=== PATIENT | male | born 1995 | race Caucasian/White ===

== ENCOUNTER 2018-03-22 09:25 | Inpatient (IN) | payer OTHER ==
[~2018-03-22] VITALS: Ht 200.7 cm; Wt 119.4 kg
[2018-03-22 10:08] LABS: ALBUMIN 4.8 g/dL (3.2-4.8); CHLORIDE 88 mEq/L (99-109); POTASSIUM 4.2 mEq/L (3.7-5.4); SODIUM 132 mEq/L (136-147)
[2018-03-22 10:11] LABS: TOTAL PROTEIN 8.6 g/dL (6.4-8.3)
[2018-03-22 10:13] LABS: TOTAL BILIRUBIN 2.1 mg/dL (0.0-1.0)
[2018-03-22 10:14] LABS: ALKALINE PHOSPHATASE 142 IU/L (3-129); CREATININE 1.6 mg/dL (0.6-1.3)
[2018-03-22 10:15] LABS: GFR ESTIMATE (CALCULATED) 57 mL/min/ (58.99-99999); UREA NITROGEN (BUN) 16 mg/dL (9-23)
[2018-03-22 10:16] LABS: AST (GOT) 41 IU/L (2-34)
[2018-03-22 10:17] LABS: ALT (GPT) 96 IU/L (3-49)
[2018-03-22 10:19] LABS: GLUCOSE 640 mg/dL (70-99)
[2018-03-22 10:46] LABS: CARBON DIOXIDE (BICARBONATE) 27.9 MEQ/L (20-31)
[2018-03-22 10:54] LABS: HEMATOCRIT 42.8 % (38.0-50.0); HEMOGLOBIN 16.2 G/DL (12.5-16.6); MCH 32.6 PG (29.0-34.0); MCHC 37.9 G/DL (30.0-36.0); MCV 86.1 FL (86-99); PLATELET COUNT 222 K/uL (156-360); RBC DIS.WIDTH-CV 11.8 % (11.8-14.6); RBC DIS.WIDTH-SD 36.2 % (39-53); RED BLOOD COUNT 4.97 M/uL (4.00-5.50); WHITE BLOOD COUNT 8.2 K/uL (4.1-10.2)
[2018-03-22 10:59] LABS: LIPASE 260 U/L (1.0-51.0)
[2018-03-22 11:50] LABS: APPEARANCE CLEAR ((CLEAR)); BILIRUBIN NEGATIVE; BLOOD SMALL; COLOR YELLOW ((YELLOW)); GLUCOSE (STRIP) >=500; KETONES 20; LEUKOCYTES NEGATIVE; NITRITE NEGATIVE; PROTEIN (STRIP) 100; SPECIFIC GRAVITY 1.036 (1.000-1.030); UROBILINOGEN 0.2 MG/DL (0.2-1.0)
[2018-03-22 11:54] LABS: BACTERIA NONE SEEN /HPF; EPITHELIAL CELLS NONE SEEN /HPF; MUCUS TRACE /LPF; RED BLOOD CELLS 0-5 /HPF (0-5); UCUL ADDED? NO; WHITE BLOOD CELLS 0-5 /HPF (0-5)
[2018-03-22 13:59] LABS: CHLORIDE 97 mEq/L (99-109); POTASSIUM 4.1 mEq/L (3.7-5.4); SODIUM 136 mEq/L (136-147)
[2018-03-22 14:02] LABS: GLUCOSE 409 mg/dL (70-99)
[2018-03-22 14:05] LABS: CREATININE 1.2 mg/dL (0.6-1.3); GFR ESTIMATE (CALCULATED) > 59 mL/min/ (58.99-99999)
[2018-03-22 14:06] LABS: UREA NITROGEN (BUN) 14 mg/dL (9-23)
[2018-03-22 14:29] LABS: SERUM ETHYL ALCOHOL < 10 mg/dL
[2018-03-22 14:31] LABS: BASOPHIL (%) 0.8 % (0-1); BASOPHIL COUNT 0.1 K/uL (0-0.1); EOSINOPHIL (%) 2.3 % (0-5); EOSINOPHIL COUNT 0.2 K/uL (0-0.3); HEMATOCRIT 39.8 % (38.0-50.0); HEMOGLOBIN 14.8 G/DL (12.5-16.6); IMMATURE GRANULOCYTE (%) 0.8 % (0.0-0.7); LYMPHOCYTE COUNT 2.2 K/uL (1.0-2.8); MCH 32.1 PG (29.0-34.0); MCHC 37.2 G/DL (30.0-36.0); MCV 86.3 FL (86-99); MONOCYTE (%) 7.1 % (3-12); MONOCYTE COUNT 0.6 K/uL (0-0.8); NEUTROPHIL COUNT 4.9 K/uL (1.8-6.4); PLATELET COUNT 214 K/uL (156-360); RBC DIS.WIDTH-CV 11.8 % (11.8-14.6); RBC DIS.WIDTH-SD 36.8 % (39-53); RED BLOOD COUNT 4.61 M/uL (4.00-5.50); WHITE BLOOD COUNT 7.9 K/uL (4.1-10.2)
[2018-03-22 15:15] LABS: ACETAMINOPHEN (TYLENOL) < 10 mcg/mL (10-30)
[2018-03-22 15:50] LABS: HDL CHOLESTEROL 16 MG/DL (Desirable>=40); NON-HDL CHOLESTEROL 148 mg/dL (Desirable<160); TOTAL CHOLESTEROL 164 mg/dL (Desirable<200); TRIGLYCERIDES 867 MG/DL (Normal: <150)
[2018-03-22 16:25] LABS: GLUCOSE 360 mg/dL (70-99)
[2018-03-22 16:28] LABS: BENZODIAZEPINES, URINE SCREEN Negative (200 ng/mL)
[2018-03-22 16:58] LABS: BASOPHIL (%) 0.8 % (0-1); BASOPHIL COUNT 0.1 K/uL (0-0.1); EOSINOPHIL (%) 3.5 % (0-5); EOSINOPHIL COUNT 0.3 K/uL (0-0.3); HEMATOCRIT 39.2 % (38.0-50.0); HEMOGLOBIN 14.7 G/DL (12.5-16.6); IMMATURE GRANULOCYTE (%) 0.9 % (0.0-0.7); LYMPHOCYTE (%) 26.3 % (15-42); LYMPHOCYTE COUNT 2.1 K/uL (1.0-2.8); MCH 32.3 PG (29.0-34.0); MCHC 37.5 G/DL (30.0-36.0); MCV 86.2 FL (86-99); MONOCYTE (%) 8.3 % (3-12); MONOCYTE COUNT 0.7 K/uL (0-0.8); NEUTROPHIL (%) 60.2 % (45-76); NEUTROPHIL COUNT 4.7 K/uL (1.8-6.4); PLATELET COUNT 203 K/uL (156-360); RBC DIS.WIDTH-CV 11.8 % (11.8-14.6); RBC DIS.WIDTH-SD 36.9 % (39-53); RED BLOOD COUNT 4.55 M/uL (4.00-5.50); WHITE BLOOD COUNT 7.8 K/uL (4.1-10.2)
[2018-03-22 19:07] LABS: CHLORIDE 98 MEQ/L (99-109); POTASSIUM 3.8 MEQ/L (3.7-5.4); SODIUM 133 MEQ/L (136-147); TOTAL BILIRUBIN 1.2 MG/DL (0.0-1.0)
[2018-03-22 19:19] LABS: GLUCOSE 416 mg/dL (70-99)
[2018-03-22 19:21] LABS: ALKALINE PHOSPHATASE 97 IU/L (3-129); ALT (GPT) 58 IU/L (3-49); AST (GOT) 26 IU/L (2-34); GFR ESTIMATE (CALCULATED) > 59 mL/min/ (58.99-99999); GLUCOSE 416 mg/dL (70-99); TOTAL PROTEIN 6.7 G/DL (6.4-8.3); UREA NITROGEN (BUN) 14 mg/dL (9-23)
[2018-03-22 19:53] VITALS: BP 133/77
[2018-03-22 20:34] LABS: GLUCOSE 342 mg/dL (70-99)
[2018-03-23] VITALS (7 sets, daily range): BP systolic 135–175; BP diastolic 78–97
[2018-03-23 05:16] LABS: BASOPHIL (%) 0.5 % (0-1); EOSINOPHIL (%) 3.8 % (0-5); EOSINOPHIL COUNT 0.2 K/uL (0-0.3); HEMATOCRIT 37.9 % (38.0-50.0); HEMOGLOBIN 13.5 G/DL (12.5-16.6); IMMATURE GRANULOCYTE (%) 0.6 % (0.0-0.7); LYMPHOCYTE (%) 31.8 % (15-42); MCH 31.6 PG (29.0-34.0); MCHC 35.6 G/DL (30.0-36.0); MCV 88.8 FL (86-99); MONOCYTE (%) 7.4 % (3-12); MONOCYTE COUNT 0.5 K/uL (0-0.8); NEUTROPHIL (%) 55.9 % (45-76); NEUTROPHIL COUNT 3.5 K/uL (1.8-6.4); PLATELET COUNT 184 K/uL (156-360); RBC DIS.WIDTH-CV 11.9 % (11.8-14.6); RBC DIS.WIDTH-SD 38.3 % (39-53); RED BLOOD COUNT 4.27 M/uL (4.00-5.50); WHITE BLOOD COUNT 6.3 K/uL (4.1-10.2)
[2018-03-23 05:51] LABS: ALBUMIN 3.9 G/DL (3.2-4.8); ALKALINE PHOSPHATASE 75 IU/L (3-129); ALT (GPT) 52 IU/L (3-49); CHLORIDE 100 MEQ/L (99-109); CREATININE 0.9 MG/DL (0.6-1.3); DIRECT BILIRUBIN 0.2 mg/dL (0.0-0.3); GFR ESTIMATE (CALCULATED) > 59 mL/min/ (58.99-99999); GLUCOSE 259 mg/dL (70-99); PHOSPHORUS 2.7 mg/dL (2.5-4.9); POTASSIUM 4.2 MEQ/L (3.7-5.4); SODIUM 134 MEQ/L (136-147); TOTAL PROTEIN 6.4 G/DL (6.4-8.3); UREA NITROGEN (BUN) 13 mg/dL (9-23)
[2018-03-23 05:57] LABS: AST (GOT) 45 IU/L (2-34); TOTAL BILIRUBIN 0.9 MG/DL (0.0-1.0)
[2018-03-23 09:12] LABS: HEMOGLOBIN A1c (GLYCOHEMOGLOB) 10.3 % (Below 5.7)
[2018-03-24 05:46] LABS: ALBUMIN 3.6 G/DL (3.2-4.8); ALKALINE PHOSPHATASE 79 IU/L (3-129); ALT (GPT) 49 IU/L (3-49); AST (GOT) 32 IU/L (2-34); DIRECT BILIRUBIN 0.2 mg/dL (0.0-0.3); PHOSPHORUS 2.9 mg/dL (2.5-4.9); TOTAL PROTEIN 6.3 G/DL (6.4-8.3)
[2018-03-24 08:16] VITALS: BP 133/89
[2018-03-24 10:23] LABS: BASOPHIL (%) 0.7 % (0-1); BASOPHIL COUNT 0.1 K/uL (0-0.1); EOSINOPHIL (%) 2.8 % (0-5); EOSINOPHIL COUNT 0.2 K/uL (0-0.3); HEMATOCRIT 38.2 % (38.0-50.0); HEMOGLOBIN 13.5 G/DL (12.5-16.6); IMMATURE GRANULOCYTE (%) 0.7 % (0.0-0.7); LYMPHOCYTE (%) 20.2 % (15-42); LYMPHOCYTE COUNT 1.4 K/uL (1.0-2.8); MCH 31.9 PG (29.0-34.0); MCHC 35.3 G/DL (30.0-36.0); MCV 90.3 FL (86-99); MONOCYTE (%) 8.2 % (3-12); MONOCYTE COUNT 0.6 K/uL (0-0.8); NEUTROPHIL (%) 67.4 % (45-76); NEUTROPHIL COUNT 4.5 K/uL (1.8-6.4); PLATELET COUNT 175 K/uL (156-360); RBC DIS.WIDTH-CV 11.9 % (11.8-14.6); RBC DIS.WIDTH-SD 38.9 % (39-53); RED BLOOD COUNT 4.23 M/uL (4.00-5.50); WHITE BLOOD COUNT 6.7 K/uL (4.1-10.2)
[2018-03-24 10:35] LABS: CHLORIDE 102 MEQ/L (99-109); CREATININE 0.9 MG/DL (0.6-1.3); GFR ESTIMATE (CALCULATED) > 59 mL/min/ (58.99-99999); GLUCOSE 229 mg/dL (70-99); POTASSIUM 3.5 MEQ/L (3.7-5.4); SODIUM 135 MEQ/L (136-147); UREA NITROGEN (BUN) 10 mg/dL (9-23)
[2018-03-24 16:15] VITALS: BP 140/92
[2018-03-24 21:00] VITALS: BP 143/86
[2018-03-25 01:19] VITALS: BP 138/93
[2018-03-25 04:55] VITALS: BP 137/89
[2018-03-25 05:26] LABS: BASOPHIL (%) 0.7 % (0-1); BASOPHIL COUNT 0.1 K/uL (0-0.1); EOSINOPHIL (%) 2.2 % (0-5); EOSINOPHIL COUNT 0.2 K/uL (0-0.3); HEMATOCRIT 37.7 % (38.0-50.0); HEMOGLOBIN 13.7 G/DL (12.5-16.6); IMMATURE GRANULOCYTE (%) 1.3 % (0.0-0.7); LYMPHOCYTE (%) 22.8 % (15-42); LYMPHOCYTE COUNT 1.6 K/uL (1.0-2.8); MCH 32.2 PG (29.0-34.0); MCHC 36.3 G/DL (30.0-36.0); MCV 88.5 FL (86-99); MONOCYTE (%) 9.3 % (3-12); MONOCYTE COUNT 0.7 K/uL (0-0.8); NEUTROPHIL (%) 63.7 % (45-76); NEUTROPHIL COUNT 4.4 K/uL (1.8-6.4); PLATELET COUNT 169 K/uL (156-360); RBC DIS.WIDTH-CV 11.8 % (11.8-14.6); RBC DIS.WIDTH-SD 37.6 % (39-53); RED BLOOD COUNT 4.26 M/uL (4.00-5.50)
[2018-03-25 06:11] LABS: CHLORIDE 95 MEQ/L (99-109); CREATININE 0.9 MG/DL (0.6-1.3); GFR ESTIMATE (CALCULATED) > 59 mL/min/ (58.99-99999); GLUCOSE 273 mg/dL (70-99); POTASSIUM 3.2 MEQ/L (3.7-5.4); SODIUM 129 MEQ/L (136-147); UREA NITROGEN (BUN) 10 mg/dL (9-23)
[2018-03-25 06:13] LABS: PHOSPHORUS 4.7 mg/dL (2.5-4.9)
[2018-03-25 07:20] VITALS: BP 142/87
[2018-03-25 13:00] VITALS: BP 151/85
[2018-03-25] MEDS ORDERED: PEN-VEE K,VEET500 MG PO (13:20)
[2018-03-25] MEDS ORDERED: FENOFIBRATE145 M1 PO (13:20)
[2018-03-25] MEDS ORDERED: NOVOLIN N100 UNITS/ SC (13:21)
== END 2018-03-25 15:54 | disposition home or self-care (01) | DRG 640 ==
LOC: EME 09:25 → EDOF 14:14 → ENRESERV 14:16 → 4EAST 16:32
PROVIDERS: Emergency Medicine; Internal Medicine
DX: E83.52 Hypercalcemia (principal); E11.01 Type 2 diabetes mellitus with hyperosmolarity with coma; N17.9 Acute kidney failure, unspecified; K85.90 Acute pancreatitis without necrosis or infection, unspecified; J02.0 Streptococcal pharyngitis; R03.0 Elevated blood-pressure reading, without diagnosis of hypertension; E86.0 Dehydration; E87.6 Hypokalemia; E78.1 Pure hyperglyceridemia; Z83.3 Family history of diabetes mellitus
CPT/HCPCS: 74176; 76705; 80048; 80048 91; 80053; 80061; 80076; 80306 90; 81003; 82010; 82803; 82947 91; 82948; 83036; 83690; 84100; 85025; 85025 91; 85027; 86664; 86665; 87651 90; 99281; 99285; G0480; J0696; J1650; J1815; J2405; J7030